=== PATIENT | male | born 1980 | race Caucasian/White ===

== ENCOUNTER 2022-03-17 06:02 | Day surgery (SDC) | payer BC ==
[2022-03-11 11:14] LABS: BASOPHILS % (AUTO) 0.9 % (0.0-5.0); EOSINOPHILS % (AUTO) 1.4 % (0.0-8.0); HEMATOCRIT 42.4 % (42-54); LYMPHOCYTES % (AUTO) 22.7 % (21.0-51.0); MEAN CORPUSCULAR HEMOGLOBIN 30.2 pg (27.0-33.0); MEAN CORPUSCULAR HGB CONC 34.4 g/dL (32.0-36.0); MEAN CORPUSCULAR VOLUME 87.6 fL (79-99); MONOCYTES % (AUTO) 5.6 % (3.0-13.0); NEUTROPHILS % (AUTO) 69.1 % (40.0-77.0); PLATELET COUNT (AUTO) 290 K/uL (130-400); RED BLOOD CELL COUNT(AUTO) 4.84 MIL/uL (4.50-6.20); RED CELL DISTRIBUTION WIDTH 11.8 % (11.0-15.5); WHITE BLOOD COUNT (AUTO) 6.6 K/uL (4.8-10.8)
[2022-03-11 11:21] LABS: INR 0.97 (0.85-1.15); PROTHROMBIN TIME 10.6 SEC (9.6-11.6)
[2022-03-11 11:23] LABS: PARTIAL THROMBOPLASTIN TIME 30.8 SEC (26.3-35.5)
[2022-03-11 11:29] LABS: POTASSIUM 4.7 mmol/L (3.5-5.1)
[2022-03-15 12:02] VITALS: BP 108/73
[~2022-03-17] VITALS: Ht 180.3 cm; Wt 87.3 kg
[2022-03-17] VITALS (14 sets, daily range): BP systolic 103–120; BP diastolic 54–75
[~2022-03-17 06:02] MED LIST: PHARMACY COMMUNICATION MISC SCH
[2022-03-17] MEDS ORDERED: LACTATED RINGERS 1000ML 1,000 ML IV ONE (06:30)
[2022-03-17] MEDS ORDERED: MIDAZOLAM HCL 1 MG/ML 2ML VIAL ONE (07:27)
[2022-03-17] MEDS ORDERED: PROPOFOL 10 MG/ML 20ML VIAL IV ONE (07:28)
[2022-03-17] MEDS ORDERED: ROCURONIUM 10MG/1ML SYR 10 MG/ML ML ONE (07:28)
[2022-03-17] MEDS ORDERED: GLYCOPYRROLATE 1 MG/5 ML SYRINGE ONE (07:28)
[2022-03-17] MEDS ORDERED: FENTANYL CITRATE PF 50 MCG/1 ML 2ML VIAL ONE (07:28)
[2022-03-17] MEDS ORDERED: CEFAZOLIN SODIUM 1 GM VIAL ONE (07:36)
[2022-03-17] MEDS ORDERED: ONDANSETRON 4MG INJ ONE (08:11)
[2022-03-17] MEDS ORDERED: NEOSTIGMINE 5MG/5ML SYR IV ONE (08:41)
== END 2022-03-17 10:20 | disposition home or self-care (01) ==
LOC: DAH 06:02
PROVIDERS: ATTEND Otolaryngology
DX: D17.0 Benign lipomatous neoplasm of skin and subcutaneous tissue of head, face and neck (principal); F45.8 Other somatoform disorders; Z79.01 Long term (current) use of anticoagulants; Z79.899 Other long term (current) drug therapy; Z98.890 Other specified postprocedural states; Z88.8 Allergy status to other drugs, medicaments and biological substances; Z88.2 Allergy status to sulfonamides; Z80.0 Family history of malignant neoplasm of digestive organs
CPT/HCPCS: 71045; 87426; 80048; 85025; 85610; 85730; 36415; 93005; 21556; A6260; A4663; A4215 ×2; A4606; J7120; J3010; J0690; J3490; J2710; J2250; J2704; J2405; A4649; A4930; A4223; A4216; A4222; A4221; A4600